=== PATIENT | female | born 1985 | race African-American/Black ===

== ENCOUNTER 2019-08-28 09:00 | Emergency (ER) | payer OTHER, SELFPAY ==
--- NOTE | 2019-08-28 09:16 | PC.NURSE ---
Sent to [facility] for observation. Spoke with Braulio at 0912. VSS.
== END 2019-08-28 09:15 | disposition still patient (30) ==
LOC: ANHED 09-26 10:35
PROVIDERS: Emergency Provider Physician Assistant
DX: Z53.21 Procedure and treatment not carried out due to patient leaving prior to being seen by health care provider (principal)
CPT/HCPCS: 99199